=== PATIENT | female | born 1995 | race Caucasian/White ===

== ENCOUNTER 2020-09-10 12:00 | Emergency (ER) | payer SELFPAY ==
[2020-09-10 12:13] VITALS: BP 115/78; PULSE 90; RESP 16; TEMP 36.4; O2SAT 100
--- NOTE | 2020-09-10 14:07 | ED.GENADULT ---
HPI - General Adult General Chief complaint: Dental/Oral Stated complaint: tooth pain Time Seen by Provider: 09/10/20 13:18 Source: patient and family Mode of arrival: ambulatory Limitations: no limitations History of Present Illness HPI narrative: Patient is a 25-year-old female who presents with right-sided cheek pain and swelling with history of dental decay patient notes moderate aching pain which has worsened each day with swelling of the face worsening this morning patient denies any trismus drooling fever chills nausea vomiting or URI symptoms has not taken anything for her symptoms presents in no distress and does not have an established dental follow-up. Related Data Allergies Allergy/AdvReac Type Severity Reaction Status Date / Time No Known Allergies Allergy Verified 09/10/20 12:02 Review of Systems Review of Systems: All systems reviewed & are unremarkable except as noted in HPI and below PMFSH Social History Social History (Updated 09/10/20 @ 14:08 by Martin Urrutia PA-C) Smoking status: Never smoker Gender identity (if verbalized by the patient): Female Exam Narrative: Exam Narrative: GENERAL: Well-appearing, well-nourished, and in no acute distress. HEAD: Normocephalic, atraumatic. EYES: PERRLA and EOMI. ENT: Nares clear, no rhinorrhea or epistaxis. Mucous membranes moist. Patient with tenderness and swelling along the right upper gumline at the posterior molar and mid molar where she has dental decay uvula midline no trismus or drooling floor of the mouth is soft CHEST: Clear to auscultation. No respiratory distress. No wheezes rales or rhonchi HEART: Regular rate and rhythm. No murmur heard. Normal peripheral pulses. ABDOMEN: Soft, nontender, nondistended. EXTREMITIES: Normal range of motion. No edema. SKIN: Warm, dry, no rash. NEURO: No focal deficits. Alert and oriented x3. PSYCH: Normal mood and affect. Course Course Emergency Course: Patient in the room no distress aware of case findings treatment plan and diagnosis agreeing to follow-up with dentistry felt appropriate for outpatient reevaluation ABCs and vital signs intact and stable Vital Signs Vital signs: Vital Signs Temperature 97.5 F L 09/10/20 12:13 Pulse Rate 90 09/10/20 12:13 Respiratory Rate 16 09/10/20 12:13 Blood Pressure 115/78 09/10/20 12:13 Pulse Oximetry 100 09/10/20 12:13 Temperature 97.5 F L 09/10/20 12:13 Pulse Rate 90 09/10/20 12:13 Respiratory Rate 16 09/10/20 12:13 Blood Pressure 115/78 09/10/20 12:13 Pulse Oximetry 100 09/10/20 12:13 Procedures Other Procedure Procedure 1: Other Procedure: 18-gauge needle was used to make single straight incision of the right upper posterior gumline blood no pus patient tolerated the procedure without difficulty Medical Decision Making MDM Narrative Medical decision making narrative: Patients pain and complaint coupled with physical findings are consistent with dentalgia. There are no focal signs of space occupying lesions that are compromising to the airway. The floor of the mouth is soft with no signs of Noble Angina. Patient is without trismus or drooling and able to swallow secretions. Patient is felt appropriate for discharge home with dental follow up. Vital Signs Vital Signs: Vital Signs Temperature 97.5 F L 09/10/20 12:13 Pulse Rate 90 09/10/20 12:13 Respiratory Rate 16 09/10/20 12:13 Blood Pressure 115/78 09/10/20 12:13 Pulse Oximetry 100 09/10/20 12:13 Temperature 97.5 F L 09/10/20 12:13 Pulse Rate 90 09/10/20 12:13 Respiratory Rate 16 09/10/20 12:13 Blood Pressure 115/78 09/10/20 12:13 Pulse Oximetry 100 09/10/20 12:13 Discharge Plan Discharge Clinical Impression: Dental abscess Patient Disposition: Home, Self-Care Condition: Stable Instructions: Antibiotic Form, Dental Abscess (ED) Additional Instructions: Follow-up with dentistry in the next 7 days for reeval
[2020-09-10] MEDS: AMOXICILLIN 500 MG CAPSULE 1000 MG PO (14:50)
== END 2020-09-10 14:51 | disposition home or self-care (01) ==
PROVIDERS: Emergency Provider Emergency Medicine
DX: K04.7 Periapical abscess without sinus (principal)
CPT/HCPCS: 41800; 99283; A9270

== ENCOUNTER 2021-03-31 08:09 | Outpatient (CLI) | payer OTHER, SELFPAY ==
--- NOTE | ~2021-03-31 | US_ITS ---
US OB <=14 wk fetus w TV DATE: 03/31/2021 08:48 INDICATION: viability and estimated gestational age determination TECHNIQUE: Real-time imaging via transabdominal and transvaginal approaches COMPARISON: None FINDINGS: Uterus measures 12.1 cm height, 7.6 cm anteroposterior and 8.4 cm transverse dimension. The re is a normal appearing intrauterine gestational sac, yolk sac and pole. heart rate of 155 bpm. [place]-rump length of 3.51 cm is consistent with 10 weeks 3 days +/- 1 week estimated gestational age; ALEIDA: 10/24/2021. There is a small subchorionic hemorrhage measuring 2.8 x 0.8 x 1.3 cm. Right ovary not visualized. Left ovary measures 4.0 x 2.1 x 2.2 cm. IMPRESSION: Estimated gestational age of 10 weeks 3 days +/- 1 week; ALEIDA: 10/24/2021 Subchorionic hemorrhage Reviewed, dictated and finalized at [facility]. Reviewed, dictated and finalized at location [facility]. IMPRESSION: Estimated gestational age of 10 weeks 3 days +/- 1 week; ALEIDA: 2021 Subchorionic hemorrhage
== END 2021-03-31 08:10 ==
PROVIDERS: Visit Provider Obstetrics & Gynecology
DX: Z36.89 Encounter for other specified antenatal screening (principal); Z3A.10 10 weeks gestation of pregnancy; O36.8911 Maternal care for other specified fetal problems, first trimester, fetus 1
CPT/HCPCS: 76801; 76817

== ENCOUNTER 2021-04-16 09:17 | Outpatient (CLI) | payer OTHER, SELFPAY ==
[2021-04-16 09:53] LABS: Basophils Percent Auto 0.3 % (0.2-1.2); Eosinophils Absolute Auto 0.1 K/mm3 (0-0.3); Eosinophils Percent Auto 0.7 % (0-4.4); Hematocrit 35.3 % (37.0-47.0); Immature Granulocyte Absolute 0.03 K/mm3 (0.00-0.031); Immature Granulocyte Percent A 0.3 % (0-0.5); Lymphocytes Absolute Auto 1.92 K/mm3 (0.9-3.2); Lymphocytes Percent Auto 19.7 % (18.3-44.2); Mean Corpuscular Volume 94.1 fl (80-100); Mean Platelet Volume 8.8 fl (7.4-10.4); Monocytes Absolute Auto 0.5 K/mm3 (0.1-0.6); Monocytes Percent Auto 4.6 % (2.6-8.5); Neutrophils Absolute Auto 7.2 K/mm3 (1.3-6.7); Neutrophils Percent Auto 74.4 % (45.5-73.1); Platelet Count Result 255 k/mm3 (150-375); Red Blood Count 3.75 M/mm3 (4.2-5.4); Red Cell Distribution Width 12.6 % (11.5-14.5); White Blood Count 9.7 K/mm3 (4.5-10.0)
[2021-04-16 09:55] LABS: Add Urine Microscopic? NO; Appearance Urine Clear (Clear); Bilirubin Urine Negative (Negative); Blood Urine Negative (Negative); Color Urine Straw (Yellow); Glucose Urine UA Negative (Negative); Ketones Urine Negative (Negative); Leukocyte Esterase Ur Negative LEU/UL (NEGATIVE); Nitrate Urine Negative (Negative); Protein Urine Negative (Negative); Urobilinogen Urine Negative mg/dL (<2.0)
[2021-04-16 09:56] LABS: Specific Grav Ur 1.004 (1.001-1.035)
[2021-04-16 10:43] LABS: Vitamin D 25 Hydroxy 21.9 ng/mL
[2021-04-16 11:02] LABS: Rubella IgG Antibody 48.7 IU/ML
[2021-04-16 11:15] LABS: Hepatitis C Virus Antibody Negative (Negative)
[2021-04-17 09:26] LABS: Rapid Plasma Reagin Non-Reactive (NonReactive)
[2021-04-19 15:39] LABS: Hematocrit 35.8 % (35.0-45.0); Hemoglobin 11.8 g/dL (11.7-15.5); MCH 31.7 pg (27.0-33.0); MCV 96.1 fL (80.0-100.0); RDW 13.5 % (11.0-15.0); Red Blood Cell Count 3.73 Mill/uL (3.80-5.10)
[2021-04-27 13:12] LABS: CF Result NEGATIVE (NEGATIVE)
== END 2021-04-16 09:18 | disposition home or self-care (01) ==
LOC: ANHLAB 09:19
PROVIDERS: Visit Provider Obstetrics & Gynecology
DX: Z34.90 Encounter for supervision of normal pregnancy, unspecified, unspecified trimester (principal); Z3A.00 Weeks of gestation of pregnancy not specified
CPT/HCPCS: 36415; 81003; 81220; 82306; 83021; 84443; 85025; 86592; 86762; 86787; 86803; 86900; 86901; 87086

== ENCOUNTER 2021-05-26 10:45 | Outpatient (CLI) | payer OTHER, SELFPAY ==
[2021-05-26 12:23] LABS: HIV 1/2 Ab P24 Ag Result Negative (Negative)
[2021-05-26 12:24] LABS: Hepatitis B Surface Antigen Negative (Negative)
== END 2021-05-26 10:46 | disposition home or self-care (01) ==
LOC: ANHLAB 10:46
PROVIDERS: Visit Provider Obstetrics & Gynecology
DX: Z34.90 Encounter for supervision of normal pregnancy, unspecified, unspecified trimester (principal)
CPT/HCPCS: 36415; 86703; 86850; 87340; G0432

== ENCOUNTER 2021-06-04 14:51 | Outpatient (CLI) | payer OTHER, SELFPAY ==
--- NOTE | ~2021-06-04 | US_ITS ---
EXAMINATION: US OB /maternal detail DATE: 06/04/2021 15:24 INDICATION: anatomic survey. TECHNIQUE: Real-time ultrasound of the pelvis was performed. COMPARISON: Ultrasound 03/31/2021 FINDINGS: There is a single living fetus in vertex presentation. The placenta is posterior, 5.9 cm from the ce rvix. heart rate is 133 beats per minute (bpm). The amniotic fluid volume is subjectively isaias l. The following biometric data were obtained: Biparietal diameter (BPD): 4.6 cm; head circumference (HC): 17.2 cm; abdominal circumference (AC): 15 .8 cm; femur length (FL): 3.2 cm. These measurements are concordant. Estimated weight is 353 g +/- 53 g, which correlates with the 84th percentile when 10/24/21 is u sed as estimated date of delivery. As single measurements, these parameters are each equal to the following estimated gestational ages w ith ranges of +/- 2 standard deviations: BPD: 20 weeks 0 days (18 weeks 2 days - 21 weeks 5 days). HC: 19 weeks 5 days (18 weeks 2 days - 21 weeks 2 days). AC: 20 weeks 6 days (18 weeks 6 days - 23 weeks 0 days). FL: 20 weeks 0 days (18 weeks 2 days - 21 weeks 6 days). estimated gestational age based solely on measurements from this exam is 20 weeks 1 days +/- 1 weeks 3 days. The cerebral ventricles, cerebellum, cisterna magna, nuchal fold, and visualized portions of the spin e are normal. The heart is normal. The diaphragm, stomach, kidneys, and bladder are normal. There are two umbilical arteries to yield a 3-vessel cord. The cord insertion is normal. IMPRESSION: 1. Single living fetus in vertex presentation. 2. Estimated weight is 353 g +/- 53 g, which correlates with the 84th percentile when 10/24/21 is used as estimated date of delivery. This date was set by ultrasound on 03/31/2021. 3. Normal anatomic survey. Reviewed, dictated and finalized at location [facility]. ESTATE INSPECTOR IMPRESSION: 1. Single living fetus in vertex presentation. 2. Estimated weight is 353 g +/- 53 g, which correlates with the 84th rcentile when 10/24/21 is used as estimated date of delivery. This date was set by ultrasound on 03/31/2021. 3. Normal anatomic survey.
== END 2021-06-04 14:52 ==
PROVIDERS: Visit Provider Obstetrics & Gynecology
DX: Z36.9 Encounter for antenatal screening, unspecified (principal); Z3A.20 20 weeks gestation of pregnancy
CPT/HCPCS: 76805

== ENCOUNTER 2021-07-21 12:06 | Outpatient (CLI) | payer OTHER, SELFPAY ==
[2021-07-21 13:35] LABS: Hematocrit 29.6 % (37.0-47.0); Hemoglobin 9.8 g/dL (12.0-15.0); Mean Corpuscular HGB Conc 33.1 g/dl (32-36); Mean Corpuscular Hemoglobin 32.7 pg (26-34); Mean Corpuscular Volume 98.7 fl (80-100); Mean Platelet Volume 8.4 fl (7.4-10.4); Platelet Count Result 274 k/mm3 (150-375); Red Cell Distribution Width 13.6 % (11.5-14.5)
[2021-07-21 13:43] LABS: Glucose 1 Hour PP 50gm Dose 172 mg/dL
[2021-07-21 14:24] LABS: HIV 1/2 Ab P24 Ag Result Negative (Negative)
[2021-07-23 07:21] LABS: Rapid Plasma Reagin Non-Reactive (NonReactive)
== END 2021-07-21 12:07 | disposition home or self-care (01) ==
LOC: ANHLAB 12:08
PROVIDERS: Visit Provider Obstetrics & Gynecology
DX: Z34.90 Encounter for supervision of normal pregnancy, unspecified, unspecified trimester (principal); Z3A.00 Weeks of gestation of pregnancy not specified
CPT/HCPCS: 36415; 82947; 85027; 86592; 86703; G0432

== ENCOUNTER 2021-08-03 08:05 | Outpatient (CLI) | payer OTHER, SELFPAY ==
[2021-08-03 08:49] LABS: Glucose Fasting Gestational 92 mg/dL (>/=95)
[2021-08-03 10:12] LABS: Glucose 1 Hour Gest 179 mg/dL (>/=180)
[2021-08-03 11:32] LABS: Glucose 2 Hour Gest 158 mg/dL (>/= 155)
[2021-08-03 12:51] LABS: Glucose 3 Hour Gest 146 mg/dL (>/=140)
== END 2021-08-03 08:06 | disposition home or self-care (01) ==
LOC: ANHLAB 08:07
PROVIDERS: Visit Provider Obstetrics & Gynecology
DX: R73.09 Other abnormal glucose (principal)
CPT/HCPCS: 36415; 82951; 82952

== ENCOUNTER 2021-08-10 09:15 | Outpatient (RCR) | payer OTHER, SELFPAY ==
[2021-08-09 15:13] VITALS: BMI 36.7
[2021-08-09 15:23] VITALS: BMI 36.7
== END 2021-09-20 14:18 | disposition home or self-care (01) ==
LOC: ANHDMC 09:15
PROVIDERS: Visit Provider Obstetrics & Gynecology
DX: O24.419 Gestational diabetes mellitus in pregnancy, unspecified control (principal); Z3A.00 Weeks of gestation of pregnancy not specified; Z71.3 Dietary counseling and surveillance; Z71.89 Other specified counseling
CPT/HCPCS: 97802; G0108

== ENCOUNTER 2021-09-24 16:56 | Outpatient (CLI) | payer OTHER, SELFPAY ==
[2021-09-24 17:09] LABS: Hematocrit 31.6 % (37.0-47.0); Hemoglobin 10.2 g/dL (12.0-15.0); Immature Platelet Fraction Pct 7.4 % (0.9-11.2); Mean Corpuscular HGB Conc 32.3 g/dl (32-36); Mean Corpuscular Hemoglobin 32.3 pg (26-34); Mean Platelet Volume 10.1 fl (7.4-10.4); Platelet Count Result 172 k/mm3 (150-375); Red Blood Count 3.16 M/mm3 (4.2-5.4); Red Cell Distribution Width 13.5 % (11.5-14.5); White Blood Count 8.7 K/mm3 (4.5-10.0)
== END 2021-09-24 16:57 | disposition home or self-care (01) ==
LOC: ANHLAB 16:58
PROVIDERS: Visit Provider Student in an Organized Health Care Education/Training Program
DX: Z34.93 Encounter for supervision of normal pregnancy, unspecified, third trimester (principal); Z3A.37 37 weeks gestation of pregnancy
CPT/HCPCS: 36415; 85027; 85055

== ENCOUNTER 2021-10-04 08:10 | Outpatient (RCR) | payer OTHER, SELFPAY ==
[2021-08-22 10:42] VITALS: BP 100/63; PULSE 109
[2021-08-29 09:31] VITALS: BP 105/66; PULSE 97
[2021-09-05 09:27] VITALS: BP 116/68; PULSE 80
[2021-09-12 10:46] VITALS: BP 105/65; PULSE 90
[2021-09-20 08:48] VITALS: BP 113/68; PULSE 102
[2021-09-27 13:46] VITALS: BP 108/64; PULSE 92
[2021-09-27 14:01] VITALS: BP 109/74; PULSE 82
[2021-09-27 14:16] VITALS: BP 104/71; PULSE 98
[2021-09-27 15:22] VITALS: BP 104/71; PULSE 103
--- NOTE | ~2021-10-04 | US_ITS ---
EXAMINATION: US OB BPP wo non-stress DATE: 10/04/2021 09:19 INDICATION: Gestational diabetes. Third trimester. TECHNIQUE: Real-time pelvic ultrasound was performed. COMPARISON: Ultrasound 09/27/2021 FINDINGS: There is a single living fetus in vertex presentation. The placenta is posterior. heart rate i s 142 beats per minute (bpm). Biophysical profile performed by the technologist: breathing (30 sec sustained breathing in 30 minutes): 2 out of 2 movement (3 gross body movements in 30 minutes): 2 out of 2 tone (one episode of qlnahtm-kepsodcsa-bnqqqwc limb movement): 2 out of 2 Amniotic fluid pocket (2 cm): 2 out of 2 Total score: 8 out of 8 IMPRESSION: 1. Single living fetus in vertex presentation. 2. Biophysical profile 8 out of 8. Reviewed, dictated and finalized at location [facility].
--- NOTE | ~2021-10-04 | US_ITS ---
EXAMINATION: US OB follow up w BPP DATE: 08/29/2021 09:04 INDICATION: Gestational diabetes. Assess biophysical profile, amniotic fluid index and weight a nd growth during third trimester . TECHNIQUE: Real-time pelvic ultrasound was performed. The interpreting radiologist was not present fo r the study. COMPARISON: None. FINDINGS: There is a single living fetus in vertex presentation. The placenta is posterior. heart rate i s 123 beats per minute (bpm). Normal amniotic fluid index of 12.0 cm (5th%-95%: 8.6-24.2 cm at 32 wee ks estimated gestational age) The following biometric data were obtained: BPD: 8.5 cm -> 34 weeks 2 days Head circumference: 31.1 cm -> 34 weeks 6 days Abdominal circumference: 31.2 cm -> 35 weeks 1 days Femur length: 6.4 cm -> 33 weeks 1 days These measurements are concordant. Head circumference to abdominal circumference ratio: 1.00 (normal range 0.94-1.11). Estimated weight: 2437 g (+/-) 366 g, 5 lbs 6 oz (+/-) 13 oz Biophysical profile performed by the technologist: breathing (30 sec sustained breathing in 30 minutes): 2 out of 2 movement (3 gross body movements in 30 minutes: 2 out of 2 tone (one episode of oawvkig-tptmmdzdf-prnvnkf limb movement): 2 out of 2 Amniotic fluid pocket (2 cm): 2 out of 2 Total score: 8 out of 8 IMPRESSION: 1. Single living fetus in vertex presentation. 2. Normal amniotic fluid index of 12.0 cm. 3. Biophysical profile 8 out of 8. 4. Estimated weight is 87th percentile by Hadlock criteria when 10/18/2021 is used as the estima rocio date of delivery (ALEIDA). Please correlate with clinical information or earlier ultrasounds for mos t accurate ALEIDA. Reviewed, dictated and finalized at location [facility]. IMPRESSION: 1. Single living fetus in vertex presentation. 2. Normal amniotic fluid index of 12.0 cm. 3. Biophysical profile 8 out of 8. 4. Estimated weight is 87th percentile by Hadlock criteria when 10/18/2021 is used as the estimated date of delivery (ALEIDA). Please correlate with clinica l information or earlier ultrasounds for most accurate ALEIDA.
--- NOTE | ~2021-10-04 | US_ITS ---
EXAMINATION: US OB follow up w BPP DATE: 09/27/2021 15:15 INDICATION: Gestational diabetes. TECHNIQUE: Real-time pelvic ultrasound was performed. COMPARISON: Ultrasound 09/20/2021 FINDINGS: There is a single living fetus in vertex presentation. The placenta is fundal. heart rate is 1 32 beats per minute (bpm). The amniotic fluid index is 11.2 cm, which is normal. The following biometric data were obtained: Biparietal diameter (BPD): 9.0 cm; head circumference (HC): 35.0 cm; abdominal circumference (AC): 35 .6 cm; femur length (FL): 7.6 cm. These measurements are concordant. Estimated weight is 3682 g +/- 552 g, which correlates with the 96th percentile when 10/18/21 is used as estimated date of delivery. As single measurements, these parameters are each equal to the following estimated gestational ages: BPD: 36 weeks 2 days. HC: 40 weeks 5 days. AC: 39 weeks 3 days. FL: 38 weeks 6 days. estimated gestational age based solely on measurements from this exam is 38 weeks 6 days +/- 2 weeks 5 days. Biophysical profile performed by the technologist: breathing (30 sec sustained breathing in 30 minutes): 2 out of 2 movement (3 gross body movements in 30 minutes): 2 out of 2 tone (one episode of yiprrux-iijalalww-lmyujrg limb movement): 2 out of 2 Amniotic fluid pocket (2 cm): 2 out of 2 Total score: 8 out of 8 IMPRESSION: 1. Single living fetus in vertex presentation. 2. Large for gestational age. Estimated weight is 3682 g +/- 552 g, which correlates with the 96th percentile when 10/18/21 is used as estimated date of delivery. Note that the first ultrasound fr om 03/31/2021 demonstrated an estimated date of delivery of 10/24/21. 3. Biophysical profile 8 out of 8. Reviewed, dictated and finalized at location [facility]. IMPRESSION: 1. Single living fetus in vertex presentation. 2. Large for gestational age. Estimated weight is 3682 g +/- 552 g, whic h correlates with the 96th percentile when 10/18/21 is used as estimated date of delivery. Note that the first ultrasound from 03/31/2021 demonstrated an estim ated date of delivery of 10/24/21. 3. Biophysical profile 8 out of 8.
--- NOTE | ~2021-10-04 | US_ITS ---
EXAMINATION: US OB limited w BPP DATE: 08/22/2021 10:55 CDT INDICATION: Gestational diabetes TECHNIQUE: Real-time transabdominal obstetric ultrasound. FINDINGS: Comparison ultrasound dated 06/04/2021 There is a single living fetus in transverse right presentation. The placenta is posterior without p lacenta previa. ADRIANA is normal measuring 12.7 cm. cardiac activity and movement is noted with a heart rate of beats per minute. Biophysical profile: breathin of 2 movement: 2 of 2 tone: 2 of 2 Amniotic flud pocket: 2 of 2 Total score: 8 of 8 IMPRESSION: 1. Single living intrauterine in transverse right presentation. 2: Total biophysical profile score of 8/8. Reviewed, dictated and finalized at location [facility].
--- NOTE | ~2021-10-04 | US_ITS ---
EXAMINATION: US OB limited w BPP DATE: 09/05/2021 09:43 INDICATION: Maternal gestational diabetes. Assess biophysical profile and amniotic fluid index. TECHNIQUE: Real-time pelvic ultrasound was performed. The interpreting radiologist was not present fo r the study. COMPARISON: None. FINDINGS: There is a single living fetus in vertex presentation. The placenta is posterior. heart rate i s 139 beats per minute (bpm). Normal amniotic fluid index of 11.7 cm (5th%-95%: 8.3-24.5 cm at 33 wee ks estimated gestational age) Biophysical profile performed by the technologist: breathing (30 sec sustained breathing in 30 minutes): 2 out of 2 movement (3 gross body movements in 30 minutes): 2 out of 2 tone (one episode of trxtbiy-ktiffrwsx-gvpqcsa limb movement): 2 out of 2 Amniotic fluid pocket (2 cm): 2 out of 2 Total score: 8 out of 8 IMPRESSION: 1. Single living fetus in vertex presentation with heart rate of 139 bpm. 2. Biophysical profile 8 out of 8. 3. Normal amniotic fluid index of 11.7 cm. Reviewed, dictated and finalized at location [facility].
--- NOTE | ~2021-10-04 | US_ITS ---
EXAMINATION: US OB limited w BPP DATE: 09/20/2021 08:40 INDICATION: Gestational diabetes during third trimester TECHNIQUE: Real-time pelvic ultrasound was performed. The interpreting radiologist was not present fo r the study. COMPARISON: None. FINDINGS: There is a single living fetus in vertex presentation. The placenta is posterior. heart rate is 142 beats per minute (bpm). The amniotic fluid index is 13.8 cm which is normal (normal range: 7.7 c m to 24.9 cm). Biophysical profile performed by the technologist: breathing (30 sec sustained breathing in 30 minutes): 2 out of 2 movement (3 gross body movements in 30 minutes): 2 out of 2 tone (one episode of fvnqkrd-vxeqkazcr-nonwhjx limb movement): 2 out of 2 Amniotic fluid pocket (2 cm): 2 out of 2 Total score: 8 out of 8 IMPRESSION: 1. Single living fetus in vertex presentation. 2. Biophysical profile 8 out of 8. 3. Normal amniotic fluid index. Reviewed, dictated and finalized at location [facility].
--- NOTE | ~2021-10-04 | US_ITS ---
EXAMINATION: US OB limited w BPP DATE: 09/12/2021 10:37 INDICATION: Trauma gestational diabetes. Assess biophysical profile and amniotic fluid index during t hird trimester TECHNIQUE: Real-time pelvic ultrasound was performed. The interpreting radiologist was not present fo r the study. COMPARISON: None. FINDINGS: There is a single living fetus in vertex presentation. The placenta is posterior. heart rate i s 145 beats per minute (bpm). Normal amniotic fluid index of 13.2 cm (5th%-95%: 8.1-24.8 cm at 34 wee ks estimated gestational age) Biophysical profile performed by the technologist: breathing (30 sec sustained breathing in 30 minutes): 2 out of 2 movement (3 gross body movements in 30 minutes): 2 out of 2 tone (one episode of oxsgzsq-wrkadowlk-splefft limb movement): 2 out of 2 Amniotic fluid pocket (2 cm): 2 out of 2 Total score: 8 out of 8 IMPRESSION: 1. Single living fetus in presentation with heart rate of bpm. 2. Biophysical profile out of 8. Reviewed, dictated and finalized at location [facility].
[2021-10-04 08:38] VITALS: BP 109/69; PULSE 100
== END 2021-10-17 02:48 | disposition home or self-care (01) ==
LOC: ANHOBOP 08:10
PROVIDERS: Visit Provider Student in an Organized Health Care Education/Training Program
DX: O24.419 Gestational diabetes mellitus in pregnancy, unspecified control (principal); Z3A.31 31 weeks gestation of pregnancy; Z3A.32 32 weeks gestation of pregnancy; Z3A.33 33 weeks gestation of pregnancy; Z3A.34 34 weeks gestation of pregnancy; Z3A.36 36 weeks gestation of pregnancy; Z3A.37 37 weeks gestation of pregnancy; Z3A.38 38 weeks gestation of pregnancy
CPT/HCPCS: 59025; 76815; 76816; 76819

== ENCOUNTER 2021-10-09 21:13 | Observation (INO) | payer OTHER, SELFPAY ==
--- NOTE | ~2021-10-09 | US_ITS ---
EXAMINATION: US OB limited DATE: 10/09/2021 23:56 INDICATION: Decreased movement during third trimester of TECHNIQUE: Real-time ultrasound of the pelvis was performed. The interpreting radiologist was not pre sent for the study. COMPARISON: 09/26/2021 and 09/27/2021 FINDINGS: There is a single living fetus in vertex presentation. The placenta is posterior fundal. No he art motion or movement identified. No evident vascular flow seen within the umbilical cord on color D oppler. The following biometric data were obtained: BPD: 8.5 cm -> 34 weeks 1 days Head circumference: 33.4 cm -> 38 weeks 1 days Abdominal circumference: 33.1 cm -> 37 weeks 0 days Femur length: 7.2 cm -> 37 weeks 0 days Dolichocephaly with decreased cephalic index of 67.9 These measurements are otherwise concordant. Head circumference to abdominal circumference ratio: 1.01 (normal range 0.92-1.06). Estimated weight: 3037 g (+/-) 455 g or 6 lbs. 11 oz. (+/-) 16 oz. IMPRESSION: 1. Single fetus with no discernible cardiac motion or flow within the umbilical cord consistent with demise. 2. Estimated weight is 21st percentile by Hadlock criteria when 10/18/2021 is used as the estima rocio date of delivery (ALEIDA). Is significantly decreased from estimated weight in the 96th percen tile on study performed on 09/27/2021 Reviewed, dictated and finalized at location [facility]. IMPRESSION: 1. Single fetus with no discernible cardiac motion or flow within the umb ilical cord consistent with demise. 2. Estimated weight is 21st percentile by Hadlock criteria when 10/18/2021 is used as the estimated date of delivery (ALEIDA). Is significantly decreased fr om estimated weight in the 96th percentile on study performed on 2
--- NOTE | 2021-10-09 23:14 | PM.IMHP ---
H&P: HPI History of Present Illness Date/Time: 10/09/21 23:14 Patient is a 26yo LMP 01/11/21 currently 38w5d with ALEIDA 10/18/21 who presented to L&D with complaints of decreased movement. Patient is dated by LMP consistent with ultrasound on 03/31/21 at 10w gestation. Patient reported normal movement last night and possible stretching movements this morning. She did not feel much movement throughout the day and presented for evaluation. Upon arrival to L&D, RN unable to auscultate heart tones. notified and upon arrival, limited bedside ultrasound was performed confirming demise. Patient denies any vaginal bleeding, leakage of fluid, or contractions. course significant for diagnosis of diet controlled gestational diabetes. Review of Systems Review of Systems: All systems reviewed & are unremarkable except as noted in HPI and below Constitutional: Constitutional: Reports as per HPI, Reports no additional constitutional complaints, Denies chills, Denies fever(s), Denies headache(s) and Denies night sweats Eyes: Eyes: Reports as per HPI and Reports no additional eye complaints ENT: Reports system reviewed and no additional complaints, except as documented, Reports as per HPI, Reports Normal hearing present and Denies headache(s) Cardiovascular: Cardiovascular: Reports as per HPI, Reports no additional cardiovascular complaints, Denies chest pain and Denies dyspnea Respiratory: Respiratory: Reports as per HPI, Reports no additional respiratory complaints, Denies cough and Denies dyspnea Gastrointestinal: Gastrointestinal: Reports as per HPI, Reports no additional gastrointestinal complaints, Denies abdominal pain, Denies change in bowel habits, Denies change in stool character, Denies nausea and Denies vomiting Genitourinary: Genitourinary: Reports no additional female genitourinary complaints, Reports as per HPI, Denies abnormal vaginal bleeding, Denies genital lesions, Denies hot flashes, Denies dyspareunia, Denies pelvic pain, Denies sexual dysfunction, Denies urinary incontinence, Denies vaginal discharge, Denies vaginal dryness and Denies vaginal odor Musculoskeletal: Musculoskeletal: Reports no additional musculoskeletal complaints and Reports as per HPI Integumentary/Breasts: Skin/Breast: Reports system reviewed and no additional complaints, except as docu, Reports as per HPI, Denies breast pain and Denies nipple discharge Neurologic: Reports system reviewed and no additional complaints, except as documented, Reports as per HPI, Reports Normal hearing present and Denies headache(s) Psychiatric: Psychiatric: Reports no additional psychiatric complaints, Reports as per HPI, Denies anxiety and Denies depression Endocrine: Endocrine: Reports no additional endocrine complaints and Reports as per HPI Hematologic/Lymphatic: Hematologic/Lymphatic: Reports no additional hematologic/lymphatic complaints and Reports as per HPI Allergic/Immunologic: Allergic/Immunologic: Reports no additional allergic/immunologic complaints and Reports as per HPI PMFSH Past Medical History Medical History x3 Surgical History Surgical History No pertinent past surgical history Family History Family History Father Alcoholism Heart problem Hypertension Grandparent Diabetes mellitus Grandparent Diabetes mellitus Mother Diverticulitis Social History Social History Smoking status: Former smoker Tobacco type: cigarettes Smoking end date: 02/07/21 Alcohol intake: former Alcohol use details: not since she found out she was Substance use: never Substance use type: marijuana Last use: 02/07/21 Gender identity (if verbalized by the patient): Female Spiritual care concerns: N
--- NOTE | 2021-10-10 00:34 | PM.OBPNVD ---
OB - PN: Subj Subjective Date/time seen: 10/10/21 00:34 Patient presented to L&D with complaints of decreased movement. Reported normal movement last night (greater than 24 hrs ago) and possible stretching movements yesterday morning. Denies any vaginal bleeding, leakage of fluid, or contractions. No heart tones auscultated by RN. Upon MD arrival, bedside sono performed confirming IUFD. OB - PN A/P Assessment and Plan (1) demise in tracey greater than 22 weeks gestation, antepartum: Code(s): O36.4XX0 - Maternal care for intrauterine , not applicable or unspecified Status: Acute Assessment and Plan: patient with IUFD at 38w6d gestation lengthy discussion had with patient regarding demise official US ordered, reaffirming IUFD management options discussed with patient, inc. preferred method of induction of labor as opposed to section considering there are no benefits and increased maternal risks patient implied an understanding and would like to proceed with IOL offered immediate admission vs. going home and returning later this afternoon pt would like to go home and return later for an IOL support and encouragement provided Time Spent With Patient Time: Total time spent is greater than 50% in coordination of care (as documented) at patient's floor/unit and/or counseling patient:
--- NOTE | 2021-10-10 01:06 | PC.NURSE ---
pt came in with concerns of DFM since either last night or possibly this morning. no movement noted throughout day. monitor placed without heart tones. doppler placed without heart tones. Called Dr. Dash at 2208- no heart tones noted. coming in. 2224- Dr. Dash in department 2226- Dr. Dash at bedside- bedside US preformed. no heart tones per US. order received to have ultra sound come to bedside for evaluation and confirmation. 2303- Dr. Dash at bedside. options discussed. 2325- Ultrasound at bedside for evaluation and confirmation. 0015- Dr. Dash at bedside- will plan on induction 10/10/21 @1600. plan discussed and questions answered. 0038- Pt d/c home.
== END 2021-10-10 00:38 | disposition home or self-care (01) ==
PROVIDERS: Admitting Provider Student in an Organized Health Care Education/Training Program; Visit Provider Student in an Organized Health Care Education/Training Program
DX: O36.4XX0 Maternal care for intrauterine death, not applicable or unspecified (principal); O24.410 Gestational diabetes mellitus in pregnancy, diet controlled; Z3A.38 38 weeks gestation of pregnancy; Z87.891 Personal history of nicotine dependence
CPT/HCPCS: 76815; G0378; G0379

== ENCOUNTER 2021-10-10 15:59 | Inpatient (IN) | payer OTHER, SELFPAY ==
[2021-10-10] VITALS (18 sets, daily range): BP systolic 92–129; BP diastolic 55–86; PULSE 87–120; BMI 38.2
--- NOTE | 2021-10-10 16:31 | LDADM ---
This patient, Karis Cuevas, was admitted to Labor/Delivery/Recovery 110 on 10/10/21 at 15:59. Plans for labor, pain management and were discussed with patient. Patient/family oriented to hospital policies and general routines including ID bracelet, bed and alarms, visiting hours, pain management, procedures, bathroom and other care routines, personal items, smoking policy, room service/diet and guest tray routines, infant security routines, and visiting hours. Patient/Family are encouraged to report perceived risks to care and to ask questions if they do not understand what they are told or what they should do. See OBIX for further documentation.
--- NOTE | 2021-10-10 17:19 | WPDANESEPP ---
Anes - Eval Pre Procedure Procedure: Labor epidural Date/Time: 10/10/21 17:19 Surgeon: blank Preop Diagnosis: intrauterine demise 38 weeks Pre Op Diagnosis: Induction of Labor Patient Data Age: 26 Gender: F Height: 1.6 m Weight: 98 kg Last Vital Signs Pulse 120 H 10/10/21 17:14 BP 124/78 10/10/21 17:14 Allergies Allergy/AdvReac Type Severity Reaction Status Date / Time No Known Allergies Allergy Verified 10/04/21 10:35 Home Medications Medication Instructions Recorded Confirmed Type vits 75-iron 28 mg-folic 1 pkg PO DAILY 04/16/21 10/10/21 History acid 800 mcg-omega-3 oral combo pack ferrous sulfate 325 mg (65 mg 325 mg PO BID 08/08/21 10/10/21 History iron) tablet blood sugar diagnostic #100 ea 08/13/21 08/22/21 Rx lancets 33 gauge #100 ea 08/13/21 08/22/21 Rx Patient hx anesthesia problems: none Family hx anesthesia problems: none Results Review: All pre-operative results and documents have been reviewed as part of the pre-operative evaluation. PMFSH Past Medical History Medical History x3 Surgical History Surgical History No pertinent past surgical history Family History Family History Father Alcoholism Heart problem Hypertension Grandparent Diabetes mellitus Grandparent Diabetes mellitus Mother Diverticulitis Social History Social History Smoking status: Former smoker Tobacco type: cigarettes Smoking end date: 02/07/21 Alcohol intake: former Alcohol use details: not since she found out she was Substance use: never Substance use type: marijuana Last use: 02/07/21 Gender identity (if verbalized by the patient): Female Spiritual care concerns: No Exam Day of Procedure 10/10/21 17:19
[2021-10-10 17:39] LABS: Basophils Percent Auto 0.1 % (0.2-1.2); Eosinophils Absolute Auto 0.2 K/mm3 (0-0.3); Eosinophils Percent Auto 2.2 % (0-4.4); Hematocrit 33.7 % (37.0-47.0); Immature Granulocyte Absolute 0.03 K/mm3 (0.00-0.031); Immature Granulocyte Percent A 0.4 % (0-0.5); Immature Platelet Fraction Pct 8.7 % (0.9-11.2); Lymphocytes Absolute Auto 1.04 K/mm3 (0.9-3.2); Lymphocytes Percent Auto 13.5 % (18.3-44.2); Mean Corpuscular HGB Conc 32.6 g/dl (32-36); Mean Corpuscular Hemoglobin 32.4 pg (26-34); Mean Corpuscular Volume 99.4 fl (80-100); Mean Platelet Volume 11.3 fl (7.4-10.4); Monocytes Absolute Auto 0.5 K/mm3 (0.1-0.6); Monocytes Percent Auto 5.8 % (2.6-8.5); Platelet Count Result 160 k/mm3 (150-375); Red Blood Count 3.39 M/mm3 (4.2-5.4); Red Cell Distribution Width 13.9 % (11.5-14.5); White Blood Count 7.7 K/mm3 (4.5-10.0)
[2021-10-10 17:44] LABS: Glucose 116 mg/dL (65-110)
--- NOTE | 2021-10-10 17:47 | PM.IMHP ---
H&P: HPI History of Present Illness Date/Time: 10/10/21 17:47 Patient is a 26yo LMP 01/11/21 currently 38w6d with ALEIDA 10/18/21 who presented to L&D with complaints of decreased movement yesterday on 10/09/21 at 38w5d gestation. Patient is dated by LMP consistent with ultrasound on 03/31/21 at 10w gestation. Patient reported normal movement two nights ago and possible stretching movements yesterday morning. She did not feel much movement throughout the day and presented for evaluation last night. Upon arrival to L&D, RN was unable to auscultate heart tones. MD was notified and upon arrival, limited bedside ultrasound was performed confirming demise as there was no cardiac activity or flow seen on color flow doppler. Patient denied any vaginal bleeding, leakage of fluid, or contractions. course significant for diagnosis of diet controlled gestational diabetes. After discussion, patient desired to go home and return this evening for an induction of labor. Chief Complaint: Intrauterine demise 38w5d gestation Gestational diabetes Review of Systems Review of Systems: All systems reviewed & are unremarkable except as noted in HPI and below Constitutional: Constitutional: Reports as per HPI, Reports no additional constitutional complaints, Denies chills, Denies fever(s), Denies headache(s) and Denies night sweats Eyes: Eyes: Reports as per HPI and Reports no additional eye complaints ENT: Reports system reviewed and no additional complaints, except as documented, Reports as per HPI, Reports Normal hearing present and Denies headache(s) Cardiovascular: Cardiovascular: Reports as per HPI, Reports no additional cardiovascular complaints, Denies chest pain and Denies dyspnea Respiratory: Respiratory: Reports as per HPI, Reports no additional respiratory complaints, Denies cough and Denies dyspnea Gastrointestinal: Gastrointestinal: Reports as per HPI, Reports no additional gastrointestinal complaints, Denies abdominal pain, Denies change in bowel habits, Denies change in stool character, Denies nausea and Denies vomiting Genitourinary: Genitourinary: Reports no additional female genitourinary complaints, Reports as per HPI, Denies abnormal vaginal bleeding, Denies genital lesions, Denies hot flashes, Denies dyspareunia, Denies pelvic pain, Denies sexual dysfunction, Denies urinary incontinence, Denies vaginal discharge, Denies vaginal dryness and Denies vaginal odor Musculoskeletal: Musculoskeletal: Reports no additional musculoskeletal complaints and Reports as per HPI Integumentary/Breasts: Skin/Breast: Reports system reviewed and no additional complaints, except as docu, Reports as per HPI, Denies breast pain and Denies nipple discharge Neurologic: Reports system reviewed and no additional complaints, except as documented, Reports as per HPI, Reports Normal hearing present and Denies headache(s) Psychiatric: Psychiatric: Reports no additional psychiatric complaints, Reports as per HPI, Denies anxiety and Denies depression Endocrine: Endocrine: Reports no additional endocrine complaints and Reports as per HPI Hematologic/Lymphatic: Hematologic/Lymphatic: Reports no additional hematologic/lymphatic complaints and Reports as per HPI Allergic/Immunologic: Allergic/Immunologic: Reports no additional allergic/immunologic complaints and Reports as per HPI PMFSH Past Medical History Medical History x3 Surgical History Surgical History No pertinent past surgical history Family History Family History Father Alcoholism Heart problem Hypertension Grandparent Diabetes mellitus Grandparent Diabetes mellitus Mother Diverticulitis Social History Social History Smoking status: Former smoke
[2021-10-10 17:56] LABS: Amphetamine Screen Urine Negative (Negative); Barbiturate Screen Urine Negative (Negative); Benzodiazepines Screen Urine Negative (Negative); Cannabinoid Screen Urine Negative (Negative); Cocaine Screen Urine Negative (Negative); Methadone Screen Urine Negative (Negative); Opiate Screen Urine Negative (Negative); Phencyclidine Screen Urine Negative (Negative)
--- NOTE | 2021-10-10 18:01 | WPDHPUPDATE1 ---
History and Physical Update Update Date/Time: 10/10/21 18:01 History and Physical has been reviewed, including an updated exam of the patient. There are NO changes in the patient's condition. Risks, benefits, and alternatives have been discussed and questions answered. Patient agrees to proceed with procedure.
[2021-10-10 18:07] LABS: Hemoglobin A1C 5.2 % (<5.7)
[2021-10-10 18:19] LABS: Free T4 Free Thyroxine 0.74 ng/mL (0.78-2.19)
--- NOTE | 2021-10-10 18:25 | PM.OBPNLAB ---
Pain Control Date/time seen: 10/10/21 18:25 Beasley balloon catheter placed and inflated with 40cc saline. Placed on traction.
[2021-10-10] MEDS: ACETAMINOPHEN 500 MG TABLET 1000 MG PO (18:29)
[2021-10-10] MEDS: miSOPROStol 50 MCG TABLET PO ×2 (18:30→22:30)
[2021-10-10] MEDS: fentaNYL CITRATE INJ (*CRX) 100 MCG/2 ML VIAL 50 MCG IV PUSH (23:54)
[2021-10-10] MEDS: LACTATED RINGERS 1,000 ML 125 ML IV CONT (23:59)
[2021-10-11] VITALS (83 sets, daily range): BP systolic 85–135; BP diastolic 43–93; PULSE 80–142; TEMP 36.2–36.3; O2SAT 92–100
[2021-10-11] MEDS: LACTATED RINGERS 1,000 ML 125 ML IV CONT (02:39)
[2021-10-11] MEDS: OXYTOCIN 30 UNITS/NS 500 ML 30 UNITS/500 ML BAG 999 UNITS IV CONT (04:11)
--- NOTE | 2021-10-11 05:02 | P.PCNOB_ITS ---
OB - Delivery Note Procedure Delivery date: 10/11/21 Procedure: Patient is a 26-year-old now who presented to labor and delivery on the evening of 10/09/21 at 38w5d with complaints of decreased movement. Patient was diagnosed with an intrauterine demise. Decision was made to proceed with an induction of labor. Patient was admitted to labor and delivery on the evening of 10/10/21. Cervical exam was approximately fingertip dilated and 30% effaced. A granda balloon catheter was placed and inflated with 40 cc of saline at approximately 5:30 p.m. Patient received Cytotec 50 mcg buccally. Patient began makenzie and making cervical change. Patient became uncomfortable and requested an epidural for pain management which was placed without difficulty. Patient received a 2nd dose of Cytotec. Granda catheter became dislodged at approximately 10:30 p.m. At same time, patient experienced spontaneous rupture of membranes. A large amount of bloody fluid was noted. Patient continued to make cervical change and was noted to be fully dilated at 3:363 a.m. She was encouraged to push and found to be pushing well. She was prepped and draped for delivery. At 4:21 a.m., patient delivered head without difficulty in SHERYL presentation. A compound presentation was noted as a hand delivered along side of face. With subsequent push, the 's neck, shoulders, and rest of body followed. A moderate amount of blood and clots followed immediately afterwards. The cord was noted to be thick and appeared to be edematous. The cord was clamped and cut. The infant was handed to awaiting nursing staff. With gentle traction on umbilical cord, the cord almost comp letely avulsed from the placenta. Patient was encouraged to push again and delivered placenta. Uterine fundus was firm with massage. On inspection, a first degree perineal laceration as well as a left vaginal wall laceration was noted. These laceration repaired with 2-0 and 3-0 Vicryl in the usual fashion. Excellent hemostasis was noted. Estimated blood loss for entire delivery was 150 cc. Events: Gestational Diabetes and Other (Intrauterine demise) Induction method: Per Misoprostol Protocol and Other (Granda balloon ) Delivery monitor: External Uterine Route of delivery: Laceration Description: Perineal - 1st Degree and Vaginal (left vaginal wall) Delivery repair: vicryl (2-0 and 3-0 ) Specimen: Yes (placenta and cord, placental cultures (maternal and side)) Quantitative Blood Loss (ml): 150 Anesthesia type: Epidural Disposition: Floor Complications: No immediate complications [place] Baby Date of : 10/11/21 Time of : 04:21 Weeks of gestation at delivery: 39 Infant gender: Female Weight (pounds): 7 Weight (ounces): 12 presentation: compound position: Left Occiput Anterior Placenta delivery description: Spontaneous Cord Vessel Description: Clamped/Cut score one minute: 0 score five minutes: 0 AMG Delivery Billing Delivery Delivery: Delivery Charge
[2021-10-11] MEDS: BENZOCAINE 20% AER SPR (*SP) 56 GM CAN 1 SPRAY TOPICAL (07:12)
[2021-10-11] MEDS: WITCH HAZEL 40 PADS 1 PAD TOPICAL (07:12)
[2021-10-11] MEDS: ACETAMINOPHEN 325 MG TABLET 650 MG PO ×2 (09:50→15:48)
[2021-10-11] MEDS: IBUPROFEN 600 MG TABLET PO ×2 (13:40→19:46)
[2021-10-11 14:54] LABS: Rapid Plasma Reagin Non-Reactive (NonReactive)
--- NOTE | 2021-10-11 17:09 | PM.OBPNVD ---
OB - PN: Subj Subjective Date/time seen: 10/11/21 17:09 Patient seen at bedside. In general, doing well. Denies significant pain or cramping. Well controlled with medication. Minimal to moderate lochia, similar to a menses. Patient ambulating without difficulty and voiding well. Discussion had with patient regarding discharge this evening versus tomorrow. Patient expressed desire to be discharged this evening. OB - PN: Obj Data Labs CBC & Chem 7: 10/10/21 16:37 10/10/21 16:37 Labs: Laboratory Results - last 24 hr 10/10/21 10/10/21 10/10/21 16:37 16:37 16:37 WBC RBC Hgb Hct MCV MCH MCHC RDW Plt Count MPV Immature Gran % (Auto) Neut % (Auto) Lymph % (Auto) [place] % (Auto) Eos % (Auto) Baso % (Auto) Lymph # (Auto) [place] # (Auto) Eos # (Auto) Baso # (Auto) Abs Immat Gran (auto) Absolute Neuts (auto) Absolute Nucleated RBC Nucleated RBC % % Immature Plt Fraction Glucose 116 H Hemoglobin A1c TSH 3.480 Free T4 0.74 L Urine Opiates Screen Urine Methadone Screen Ur Barbiturates Screen Ur Phencyclidine Scrn Ur Amphetamine Screen U Benzodiazepines Scrn Urine Cocaine Screen U Cannabinoids Screen RPR Blood Type Antibody Screen KB Hemoglobin Positive 10/10/21 10/10/21 10/10/21 16:37 16:37 16:37 WBC 7.7 RBC 3.39 L Hgb 11.0 L Hct 33.7 L MCV 99.4 MCH 32.4 MCHC 32.6 RDW 13.9 Plt Count 160 MPV 11.3 H Immature Gran % (Auto) 0.4 Neut % (Auto) 78.0 H Lymph % (Auto) 13.5 L [place] % (Auto) 5.8 Eos % (Auto) 2.2 Baso % (Auto) 0.1 L Lymph # (Auto) 1.04 [place] # (Auto) 0.5 Eos # (Auto) 0.2 Baso # (Auto) 0.0 Abs Immat Gran (auto) 0.03 Absolute Neuts (auto) 6.0 Absolute Nucleated RBC 0.0 Nucleated RBC % 0.0 % Immature Plt Fraction 8.7 Glucose Hemoglobin A1c TSH Free T4 Urine Opiates Screen Urine Methadone Screen Ur Barbiturates Screen Ur Phencyclidine Scrn Ur Amphetamine Screen U Benzodiazepines Scrn Urine Cocaine Screen U Cannabinoids Screen RPR Non-reactive Blood Type O Positive Antibody Screen Negative KB Hemoglobin 10/10/21 10/10/21 17:01 17:01 WBC RBC Hgb Hct MCV MCH MCHC RDW Plt Count MPV Immature Gran % (Auto) Neut % (Auto) Lymph % (Auto) [place] % (Auto) Eos % (Auto) Baso % (Auto) Lymph # (Auto) [place] # (Auto) Eos # (Auto) Baso # (Auto) Abs Immat Gran (auto) Absolute Neuts (auto) Absolute Nucleated RBC Nucleated RBC % % Immature Plt Fraction Glucose Hemoglobin A1c 5.2 TSH Free T4 Urine Opiates Screen Negative Urine Methadone Screen Negative Ur Barbiturates Screen Negative Ur Phencyclidine Scrn Negative Ur Amphetamine Screen Negative U Benzodiazepines Scrn Negative Urine Cocaine Screen Negative U Cannabinoids Screen Negative RPR Blood Type Antibody Screen KB Hemoglobin OB - PN A/P Assessment and Plan (1) Vaginal delivery: Code(s): O80 - Encounter for full-term uncomplicated delivery Status: Acute Assessment and Plan: patient doing well requesting dc home today, which I agree with emergency precautions reviewed f/u in office in 2 weeks or sooner if necessary (2) demise in tracey greater than 22 weeks gestation, antepartum: Code(s): O36.4XX0 - Maternal care for intrauterine , not applicable or unspecified Status: Acute Time Spent With Patient Time: Total time spent is greater than 50% in coordination of care (as documented) at patient's floor/unit and/or counseling patient: Exam Const: General: cooperative, healthy appearing, comfortable and no acute distress GI: GI Palp: Yes Soft to palpation and No Tenderness to palpation present (
--- NOTE | 2021-10-11 17:16 | PM.OBDSVD ---
DS: Admitting Diagnosis Discharge Date 10/11/21 Admitting Diagnosis Intrauterine demise Gestational diabetes OB - DS: Summary OB Procedures : None OB Procedures Intrapartum: Spontaneous Vag Delivery OB Procedures: : None Time Spent with Patient Time attestation: Total time spent providing and/or coordinating discharge services: DS: Data Data Completed and Pending Pending studies at discharge: Pending at discharge 10/11/21 04:23 Surgical [PTH] Routine 10/11/21 16:15 Autopsy [PTH] Routine Labs on day of discharge: Labs from last 24 hours 10/10/21 10/10/21 10/10/21 17:01 17:01 17:01 WBC RBC Hgb Hct MCV MCH MCHC RDW Plt Count MPV Immature Gran % (Auto) Neut % (Auto) Lymph % (Auto) [place] % (Auto) Eos % (Auto) Baso % (Auto) Lymph # (Auto) [place] # (Auto) Eos # (Auto) Baso # (Auto) Abs Immat Gran (auto) Absolute Neuts (auto) Absolute Nucleated RBC Nucleated RBC % % Immature Plt Fraction LA PTT Screen dRVVT Screen dRVVT Additional Test Lupus Anticoag Interp Glucose Hemoglobin A1c 5.2 TSH Free T4 Urine Opiates Screen Negative Urine Methadone Screen Negative Ur Barbiturates Screen Negative Ur Phencyclidine Scrn Negative Ur Amphetamine Screen Negative U Benzodiazepines Scrn Negative Urine Cocaine Screen Negative U Cannabinoids Screen Negative Beta-2-GPI IgG Ab Beta-2-GPI IgA Ab Beta-2-GPI IgM Ab Anti-Cardiolipin IgG Ab Anti-Cardiolipin IgA Ab Anti-Cardiolipin IgM Ab RPR CMV IgG Ab CMV IgM Ab SARS-CoV-2 IgG Ab Pending Blood Type Antibody Screen KB Hemoglobin 10/10/21 10/10/21 10/10/21 16:37 16:37 16:37 WBC 7.7 RBC 3.39 L Hgb 11.0 L Hct 33.7 L MCV 99.4 MCH 32.4 MCHC 32.6 RDW 13.9 Plt Count 160 MPV 11.3 H Immature Gran % (Auto) 0.4 Neut % (Auto) 78.0 H Lymph % (Auto) 13.5 L [place] % (Auto) 5.8 Eos % (Auto) 2.2 Baso % (Auto) 0.1 L Lymph # (Auto) 1.04 [place] # (Auto) 0.5 Eos # (Auto) 0.2 Baso # (Auto) 0.0 Abs Immat Gran (auto) 0.03 Absolute Neuts (auto) 6.0 Absolute Nucleated RBC 0.0 Nucleated RBC % 0.0 % Immature Plt Fraction 8.7 LA PTT Screen dRVVT Screen dRVVT Additional Test Lupus Anticoag Interp Glucose Hemoglobin A1c TSH Free T4 Urine Opiates Screen Urine Methadone Screen Ur Barbiturates Screen Ur Phencyclidine Scrn Ur Amphetamine Screen U Benzodiazepines Scrn Urine Cocaine Screen U Cannabinoids Screen Beta-2-GPI IgG Ab Beta-2-GPI IgA Ab Beta-2-GPI IgM Ab Anti-Cardiolipin IgG Ab Anti-Cardiolipin IgA Ab Anti-Cardiolipin IgM Ab RPR Non-reactive CMV IgG Ab CMV IgM Ab SARS-CoV-2 IgG Ab Blood Type O Positive Antibody Screen Negative KB Hemoglobin 10/10/21 10/10/21 10/10/21 16:37 16:37 16:37 WBC RBC Hgb Hct MCV MCH MCHC RDW Plt Count MPV Immature Gran % (Auto) Neut % (Auto) Lymph % (Auto) [place] % (Auto) Eos % (Auto) Baso % (Auto) Lymph # (Auto) [place] # (Auto) Eos # (Auto) Baso # (Auto) Abs Immat Gran (auto) Absolute Neuts (auto) Absolute Nucleated RBC Nucleated RBC % % Immature Plt Fraction LA PTT Screen dRVVT Screen dRVVT Additional Test Lupus Anticoag Interp Glucose Hemoglobin A1c TSH Free T4 Urine Opiates Screen Urine Methadone Screen Ur Barbiturates Screen Ur Phencyclidine Scrn Ur Amphetamine Screen U Benzodiazepines Scrn Urine Cocaine Screen U Cannabinoids Screen Beta-2-GPI IgG Ab Pending Beta-2-GPI IgA Ab Pending Beta-2-GPI IgM Ab Pending Anti-Cardiolipin IgG Ab Pending Anti-Cardiolipin IgA Ab Pending Anti-Cardiolipin IgM Ab Pending RPR
--- NOTE | 2021-10-11 17:55 | PC.NURSE ---
Baby brought back into room after additional hand prints, foot prints, memory book, and locket of hair obtained. Bracelet applied to infant and extras given to family. Pt holding . Dr. Dash has been in and pt would like to go home. Pt to call out when she is done holding infant.
--- NOTE | 2021-10-11 20:29 | PC.NURSE ---
1944- pt called out requesting to have baby removed from room. baby removed from room
[2021-10-12 20:40] LABS: Lupus dRVVT 1:1 Mix Interpreta Not Indicated; Lupus dRVVT Screen 29 sec (<=45); PTT-LA Screen 29 sec (<=40)
[2021-10-13 03:24] LABS: Anti Cardio Antibody IgM <2.0 MPL-U/mL (<20.0); Anti Cardiolipin Antibody IgA <2.0 APL-U/mL (<20.0); Anti Cardiolipin Antibody IgG <2.0 GPL-U/mL (<20.0)
[2021-10-13 15:59] LABS: CMV IgG Antibody <0.60 U/mL (<0.60)
[2021-10-13 20:06] LABS: CMV IgM Antibody <30.00 AU/mL (<30.00)
== END 2021-10-11 20:25 | disposition home or self-care (01) | DRG 807 ==
PROVIDERS: Admitting Provider Student in an Organized Health Care Education/Training Program; Visit Provider Student in an Organized Health Care Education/Training Program
DX: O36.4XX0 Maternal care for intrauterine death, not applicable or unspecified (principal); Z37.1 Single stillbirth; Z3A.38 38 weeks gestation of pregnancy; O24.420 Gestational diabetes mellitus in childbirth, diet controlled; O70.0 First degree perineal laceration during delivery; O32.6XX0 Maternal care for compound presentation, not applicable or unspecified
CPT/HCPCS: 36415; 76815; 80307; 82947; 83036; 84439; 84443; 85025; 85055; 85460; 85613; 85730; 86146; 86147; 86592; 86644; 86645; 86769; 86850; 86900; 86901; 87070; 87075; 87076; 87086; 87088; 87205; 88305; 88307; 88313; 88342; A9270; G0378; G0379; J2590; J2795; J3010; J7120